=== PATIENT | female | born 1995 | race Caucasian/White ===

== ENCOUNTER 2017-08-15 20:41 | Emergency (ER) | payer OTHER ==
[~2017-08-15] VITALS: Ht 162.6 cm; Wt 53.5 kg
[2017-08-15 20:50] VITALS: Ht 162.6 cm; Wt 53.5 kg
[2017-08-15 21:58] VITALS: BP 112/62
== END 2017-08-15 22:05 | disposition home or self-care (01) ==
LOC: ED 20:41
DX: J02.9 Acute pharyngitis, unspecified (principal); M94.0 Chondrocostal junction syndrome [Tietze]
CPT/HCPCS: J1100; J1885